=== PATIENT | male | born 1935 | race Caucasian/White ===

== ENCOUNTER → 2017-05-26 | Outpatient (CLI) | payer MEDICARE ==
--- NOTE | 2017-05-26 14:16 | CARD ---
APPROVED REPORT EXAM: Two-dimensional and M-mode echocardiogram with Doppler and color Doppler. Other Information Quality : Average Rhythm : NSR INDICATION Pericardial Effusion Hypertension/HCVD 2D DIMENSIONS Left Atrium(2D)3.5 (1.6-4.0cm)IVSd0.9 (0.7-1.1cm) Aortic Root(2D)3.2 (2.0-3.7cm)LVDd5.4 (3.9-5.9cm) LVOT Diameter2.4 (1.8-2.4cm)PWd0.9 (0.7-1.1cm) LVDs3.5 (2.5-4.0cm)FS (%) 34.2 % SV87.7 mlLVEF(%)62.7 (>50%) Aortic Valve AoV Peak Thomas.148.1cm/sAoV VTI26.3cm AO Peak GR.8.8mmHgLVOT Peak Thomas.99.1cm/s LVOT VTI 18.69cmAO Mean GR.5mmHg FERNIE (VMAX)2.77zb7ONZ (VTI)3.11cm2 Mitral Valve MV E Ognfvuvj11.4cm/sMV E Peak Gr.4mmHg MV DECEL [id number] A Kqmbrmwq78.8cm/s MV E Mean Gr.2mmHgMV ZEZ94bo E/A Ratio0.9MV A Pivxnzcx00fd MVA (PHT)3.53cm2 Tricuspid Valve TR P. Zxhhlbtg570jy/sRAP VQUKRLFI6sqMj TR Peak Gr.37bvTbDHDY41dtBc LEFT VENTRICLE The left ventricle is normal size. There is normal left ventricular wall thickness. Left ventricle sy stolic function is normal. The Ejection Fraction is 60-65%. There is normal LV segmental wall motion. Tissue Doppler imaging reveals mild left ventricular diastolic dysfunction. Transmitral Doppler flow pattern is Grade I-abnormal relaxation pattern. RIGHT VENTRICLE The right ventricle is normal size. The right ventricular systolic function is normal. ATRIA The left atrium size is normal. The right atrium size is normal. The interatrial septum is intact wit h no evidence for an atrial septal defect or patent foramen ovale as noted on 2-D or Doppler imaging. AORTIC VALVE The aortic valve is mildly calcified but opens well. The aortic valve is trileaflet. Doppler and [place] r Flow revealed no significant aortic regurgitation. There is no significant aortic valvular stenosis . MITRAL VALVE The mitral valve is normal in structure and function. There is no mitral valve stenosis. Doppler and Color Flow revealed no mitral valve regurgitation noted. TRICUSPID VALVE The tricuspid valve is normal in structure and function. Doppler and Color Flow revealed trace tricus pid regurgitation. The PA pressure was estimated at 37 mmHg. There is no tricuspid valve stenosis. PULMONIC VALVE The pulmonic valve is not well visualized. Doppler and Color Flow revealed no pulmonic valvular regur gitation. There is no pulmonic valvular stenosis. GREAT VESSELS The aortic root is normal in size. Pulmonary veins not recorded. The IVC is normal in size and collap ses >50% with inspiration. PERICARDIAL EFFUSION There is no evidence of significant pericardial effusion. Critical Notification Critical Value: No <Conclusion> Left ventricle systolic function is normal. The Ejection Fraction is 60-65%. There is normal LV segmental wall motion. Transmitral Doppler flow pattern is Grade I-abnormal relaxation pattern. Doppler and Color Flow revealed trace tricuspid regurgitation. The PA pressure was estimated at 37 mmHg. There is no evidence of significant pericardial effusion.
== END | disposition home or self-care (01) ==
LOC: ECHO 10:41
PROVIDERS: ATTEND Internal Medicine Cardiovascular Disease
DX: I10 Essential (primary) hypertension (principal)
CPT/HCPCS: 93306

== ENCOUNTER → 2018-07-28 | Outpatient (CLI) | payer MEDICARE ==
[~2018-07-28] MED LIST: IOHEXOL 300 MG/ML 75 ML VIAL. IV ONE
--- NOTE | 2018-07-28 13:44 | RAD ---
CT abdomen and pelvis without and with intravenous contrast (CT Urogram) History: Microhematuria for 6 months. Comparison: None. Technique: Initially, noncontrast CT of the abdomen and pelvis was performed. After intravenous contrast administration, 75 mL Omnipaque-300, repeat CT of the abdomen was performed in nephrographic phase. Delayed excretory phase CT of the abdomen and pelvis was also obtained. Exposure: One or more of the following individualized dose reduction techniques were utilized for this examination: 1. Automated exposure control 2. Adjustment of the mA and/or kV according to patient size 3. Use of iterative reconstruction technique Findings: Noncontrast images demonstrate no evidence of urinary stone. Postcontrast images demonstrate symmetric enhancement and excretion of intravenous contrast by both kidneys. Interpolar region of the right kidney demonstrates 1.6 cm nonenhancing cyst. Interpolar region of the left kidney demonstrates 1.9 cm nonenhancing cyst. Interpolar region of the right kidney demonstrates additional subcentimeter low-attenuation lesion incompletely characterized, also probably cyst. The right ureter is opacified in its entirety and is without evidence of filling defect. Distal 1/3 of left ureter does not fill with excreted intravenous contrast, but there is no evidence of left ureteral mass. Urinary bladder is without evidence of focal mass. The prostate is enlarged. The superior aspect of the prostate is heterogeneous in attenuation and creates an impression upon bladder base. Liver, spleen, pancreas, and right adrenal gland are unremarkable. There is mild diffuse thickening of left adrenal gland. Cholelithiasis is seen. No bowel obstruction or inflammation is identified. Appendix is without evidence of inflammation. Severe colonic diverticulosis is seen in the sigmoid colon. The colon is without evidence of diverticulitis. No free air or free fluid is seen in the abdomen or pelvis. Small fat-containing right inguinal hernia is seen. Degenerative changes are present in the spine. Impression: 1. No evidence urinary stone or soft tissue mass. No cause for hematuria is identified. 2. Bilateral renal cysts. 3. Heterogeneous, enlarged prostate. Consider correlation with PSA levels. 4. Mild thickening of the left adrenal gland. 5. Cholelithiasis. 6. Colonic diverticulosis without evidence of diverticulitis. 7. Fat-containing right inguinal hernia. Electronically signed by: Vincent Ramesh MD (07/28/2018 1:41 PM) [place] [id number]
== END | disposition home or self-care (01) ==
LOC: CT 10:21
PROVIDERS: ATTEND Internal Medicine Cardiovascular Disease
DX: K80.20 Calculus of gallbladder without cholecystitis without obstruction (principal); K57.30 Diverticulosis of large intestine without perforation or abscess without bleeding; K40.90 Unilateral inguinal hernia, without obstruction or gangrene, not specified as recurrent; N40.0 Benign prostatic hyperplasia without lower urinary tract symptoms; N28.1 Cyst of kidney, acquired
CPT/HCPCS: 74178; Q9967

== ENCOUNTER → 2018-12-29 | Outpatient (CLI) | payer MEDICARE ==
[~2018-12-29] MED LIST changes: +IOHEXOL 240 MG/ML 50ML VIAL. ONE
--- NOTE | 2018-12-29 10:40 | RAD ---
CT of the abdomen and pelvis with contrast, 12/29/2018: HISTORY: Hypoglycemia elevated labs, cancer screening Multidetector CT imaging was performed following oral and IV administration of contrast. Comparison is made to a study from 07/28/2018. There is mild linear scarring in the lung bases. There is no evidence of a hepatic mass or bile duct dilatation. Faint radiopacities within the posterior aspect of the gallbladder compatible with gallstones. The gallbladder wall is not thickened and no pericholecystic edema is seen. The pancreas is unremarkable. The spleen is of normal size. There is bilateral renal cortical scarring. There are single small cysts in both kidneys. The kidneys show no evidence of obstruction. There is mild unchanged thickening of the left adrenal gland. There is moderate calcific plaquing of the abdominal aorta and its branches without evidence of aneurysm. No abdominal or pelvic adenopathy is seen. There is mild dilatation of the right inguinal ring containing fat. No bowel herniation is evident. The prostate gland is mildly enlarged. It contains calcifications. The seminal vesicles are unremarkable. There is extensive sigmoid diverticulosis. No paracolonic inflammatory process is seen. The bowel loops are not dilated. The appendix is visualized and shows no abnormality. No free fluid is evident in the abdomen or pelvis. Moderate multilevel degenerative changes are present in the lumbar spine. IMPRESSION: 1. Cholelithiasis. 2. Extensive sigmoid diverticulosis. 3. Nonspecific prostatic enlargement. 4. Fat-containing right inguinal hernia. 5. Bilateral renal cysts 6. Stable mild thickening of the left adrenal gland. PQRS Compliance Statement: One or more of the following individualized dose reduction techniques were utilized for this examination: 1. Automated exposure control 2. Adjustment of the mA and/or kV according to patient size 3. Use of iterative reconstruction technique Electronically signed by: Lee Warner MD (12/29/2018 10:37 AM) [facility]
== END | disposition home or self-care (01) ==
LOC: CT 08:09
PROVIDERS: ATTEND Internal Medicine Cardiovascular Disease
DX: K80.20 Calculus of gallbladder without cholecystitis without obstruction (principal); K57.30 Diverticulosis of large intestine without perforation or abscess without bleeding; N40.0 Benign prostatic hyperplasia without lower urinary tract symptoms; K40.90 Unilateral inguinal hernia, without obstruction or gangrene, not specified as recurrent; N28.1 Cyst of kidney, acquired; E16.2 Hypoglycemia, unspecified; I10 Essential (primary) hypertension; Z87.891 Personal history of nicotine dependence
CPT/HCPCS: 74177; Q9967

== ENCOUNTER → 2019-01-11 | Outpatient (CLI) | payer MEDICARE ==
--- NOTE | 2019-01-11 15:34 | CARD ---
MR#: [id number] Date of Study: 01/11/2019 Ordering Physician: DEMETRIUS DOMINGUEZ, Referring Physician: DEMETRIUS DOMINGUEZ Tech: Jen Louis RDCS APPROVED REPORT EXAM: Two-dimensional and M-mode echocardiogram with Doppler and color Doppler. Other Information Quality : Good INDICATION Hypertension/HCVD 2D DIMENSIONS RVDd2.9 (2.9-3.5cm)Left Atrium(2D)3.8 (1.6-4.0cm) IVSd0.8 (0.7-1.1cm)Aortic Root(2D)2.6 (2.0-3.7cm) LVDd5.7 (3.9-5.9cm)LVOT Diameter2.1 (1.8-2.4cm) PWd0.8 (0.7-1.1cm)LVDs3.2 (2.5-4.0cm) FS (%) 30.0 %SV116.8 ml LVEF(%)60.0 (>50%) Aortic Valve AoV Peak Thomas.153.9cm/sAoV VTI27.1cm AO Peak GR.9.5mmHgLVOT Peak Thomas.103.4cm/s LVOT VTI 21.47cmAO Mean GR.5mmHg FERNIE (VMAX)2.15vy9LLL (VTI)2.79cm2 Mitral Valve MV E Ycffbmjp74.0cm/sMV DECEL MMYY144sa MV A Lduxxfln24.8cm/sE/A Ratio0.9 Tricuspid Valve TR P. Jdpkwguw191zd/sRAP VYPFYMKX4vuUf TR Peak Gr.32juIcTXAX79azSx Pulmonary Vein S1 Cmdholnb90.0cm/sD2 Ihahmzqj37.4cm/s LEFT VENTRICLE The left ventricle is normal size. There is normal left ventricular wall thickness. The left ventricu lar systolic function is normal. The Ejection Fraction is 60%. There is normal LV segmental wall rich on. Transmitral Doppler flow pattern is Grade I-abnormal relaxation pattern. RIGHT VENTRICLE The right ventricle is normal size. The right ventricular systolic function is normal. ATRIA The left atrium size is normal. The right atrium size is normal. The interatrial septum is intact wit h no evidence for an atrial septal defect or patent foramen ovale as noted on 2-D or Doppler imaging. AORTIC VALVE The aortic valve is mildly thickened but opens well. Doppler and Color Flow revealed no significant a ortic regurgitation. There is no significant aortic valvular stenosis. MITRAL VALVE The mitral valve is calcified but opens well. Mitral annular calcification is mild. There is no evide nce of mitral valve prolapse. There is no mitral valve stenosis. Doppler and Color Flow revealed no m itral valve regurgitation noted. TRICUSPID VALVE The tricuspid valve is normal in structure and function. Doppler and Color Flow revealed trace tricus pid regurgitation. There is mild pulmonary hypertension. The PA pressure was estimated at 32 mmHg. Th ere is no tricuspid valve stenosis. PULMONIC VALVE The pulmonic valve is not well visualized. Doppler and Color Flow revealed no pulmonic valvular regur gitation. There is no pulmonic valvular stenosis. GREAT VESSELS The aortic root is normal in size. The ascending aorta is normal in size. The IVC is normal in size a nd collapses >50% with inspiration. PERICARDIAL EFFUSION There is no evidence of significant pericardial effusion. Critical Notification Critical Value: No <Conclusion> The left ventricular systolic function is normal. The Ejection Fraction is 60%. There is normal LV segmental wall motion. Transmitral Doppler flow pattern is Grade I-abnormal relaxation pattern. Doppler and Color Flow revealed trace tricuspid regurgitation. The PA pressure was estimated at 32 mmHg. There is no evidence of significant pericardial effusion. Signed by : Demetrius Dominguez, Electronically Approved : 01/11/2019 15:33:56
== END | disposition home or self-care (01) ==
LOC: ECHO 12:44
PROVIDERS: ATTEND Internal Medicine Cardiovascular Disease
DX: I27.20 Pulmonary hypertension, unspecified (principal); I10 Essential (primary) hypertension
CPT/HCPCS: 93306

== ENCOUNTER → 2019-03-28 | Outpatient (CLI) | payer MEDICARE ==
[2019-03-28 15:18] LABS: BASO % 0 % (0-3); EOS # 0.1 x10^3/uL (0.0-0.7); EOS % 1 % (0-3); HEMATOCRIT 43.6 % (39.0-53.0); HEMOGLOBIN 14.8 g/dL (13.0-17.5); LYMPH % 16 % (24-48); MEAN CORPUSCULAR HEMOGLOBIN 34 pg (25-35); MEAN CORPUSCULAR HGB CONC 34 g/dL (31-37); MEAN CORPUSCULAR VOLUME 100 fL (79-100); MONO % 15 % (0-9); NEUT # 4.3 x10^3uL (1.8-7.7); NEUT % 68 % (31-73); PLATELET COUNT 153 x10^3/uL (140-400); RED BLOOD COUNT 4.34 x10^6/uL (4.30-5.70); RED CELL DISTRIBUTION WIDTH 13.2 % (11.5-14.5); WHITE BLOOD COUNT 6.4 x10^3/uL (4.0-11.0)
--- NOTE | 2019-03-28 15:18 | RAD ---
Limited ultrasound evaluation, left axilla 03/28/2019 INDICATION: Palpable abnormality COMPARISON STUDY: None Discussion: Ultrasound evaluation of the left axilla was performed in the area of palpable abnormality as indicated by the patient. The food technologist notes that the abnormality was nonpalpable during their exam. Limited ultrasound evaluation demonstrates no abnormal mass or focal fluid collection. A small normal-appearing lymph node is seen with retention of its fatty hilum and normal cortical thickness. This measures is 0.9 x 0.6 x 0.3 cm. No other focal sonographic abnormalities are appreciated. IMPRESSION: Unremarkable sonographic appearance of the left axilla. Electronically signed by: Alex Saucedo MD (03/28/2019 3:15 PM) [id number]
[2019-03-28 15:36] LABS: ALBUMIN/GLOBULIN RATIO 1.1 (1.0-1.7); CALCIUM 10.4 mg/dL (8.5-10.1); CREATININE 0.8 mg/dL (0.7-1.3); GFR 92.5; TOTAL BILIRUBIN 0.7 mg/dL (0.2-1.0); TOTAL PROTEIN 7.7 g/dL (6.4-8.2)
[2019-03-29 18:06] LABS: INSULIN LEVEL 8.2 uIU/mL (2.6-24.9)
[2019-03-30 22:07] LABS: ALBUM 4.2 g/dL (2.9-4.4); ALPHA 1 0.2 g/dL (0.0-0.4); ALPHA 2 0.7 g/dL (0.4-1.0); BETA 0.9 g/dL (0.7-1.3); GAMMA 1.2 g/dL (0.4-1.8); PROTEIN TOTAL 7.2 g/dL (6.0-8.5); SPEP AG RATIO 1.4 (0.7-1.7)
== END | disposition home or self-care (01) ==
LOC: US 14:05
PROVIDERS: ATTEND Internal Medicine Cardiovascular Disease
DX: R22.9 Localized swelling, mass and lump, unspecified (principal); I10 Essential (primary) hypertension; E78.5 Hyperlipidemia, unspecified
CPT/HCPCS: 36415; 76882; 80053; 83525; 84165; 85025

== ENCOUNTER → 2021-05-07 | Outpatient (CLI) | payer MEDICARE ==
--- NOTE | 2021-05-07 15:45 | CARD ---
MR#: [id number] Date of Study: 05/07/2021 Ordering Physician: DEMETRIUS HALEY, Referring Physician: DEMETRIUS HALEY, Tech: APPROVED REPORT EXAM: Two-dimensional and M-mode echocardiogram with Doppler and color Doppler. INDICATION Hypertension/HCVD RISK FACTORS Smoking 2D DIMENSIONS RVDd3.2 (2.9-3.5cm)Left Atrium(2D)3.7 (1.6-4.0cm) IVSd1.0 (0.7-1.1cm)Aortic Root(2D)3.3 (2.0-3.7cm) LVDd5.1 (3.9-5.9cm)LVOT Diameter2.0 (1.8-2.4cm) PWd1.0 (0.7-1.1cm)LVDs2.6 (2.5-4.0cm) FS (%) 49.0 %SV99.9 ml LVEF(%)70.1 (>50%) Aortic Valve AoV Peak Thomas.139.7cm/sAoV VTI32.3cm AO Peak GR.7.8mmHgLVOT Peak Thomas.85.8cm/s LVOT VTI 18.71cmAO Mean GR.4mmHg FERNIE (VMAX)1.06ww5ZRH (VTI)1.76cm2 Mitral Valve MV E Jntjjbxl93.5cm/sMV DECEL TMBN952on MV A Gscmkfkf36.1cm/sE/A Ratio1.1 Pulmonary Valve PV Peak Tmzzgnrg08.0cm/sPV Peak Grad.2mmHg Tricuspid Valve TR P. Outhvxhd199tt/sRAP LEEIYJHJ9ejGf TR Peak Gr.78deIwRDHF49utFx Pulmonary Vein S1 Tvromkon97.0cm/sD2 Wbogdpwk70.1cm/s LEFT VENTRICLE The left ventricle is normal size. There is borderline concentric left ventricular hypertrophy. The l eft ventricular systolic function is normal. The Ejection Fraction is 60-65%. There is normal LV segm ental wall motion. Transmitral Doppler flow pattern is Grade II-pseudonormal filling dynamics. RIGHT VENTRICLE The right ventricle is normal size. There is normal right ventricular wall thickness. The right ventr icular systolic function is normal. ATRIA The left atrium size is normal. The right atrium is borderline dilated. The interatrial septum is int act with no evidence for an atrial septal defect or patent foramen ovale as noted on 2-D or Doppler i maging. AORTIC VALVE The aortic valve is thickened but opens well. Doppler and Color Flow revealed no significant aortic r egurgitation. There is no significant aortic valvular stenosis. Calculated aortic valve area is 2.2 c m2 with maximum pressure gradient of 8 mmHg and mean pressure gradient of 4 mmHg. MITRAL VALVE The mitral valve is normal in structure and function. There is no evidence of mitral valve prolapse. There is no mitral valve stenosis. Doppler and Color Flow revealed no mitral valve regurgitation note d. TRICUSPID VALVE The tricuspid valve is normal in structure and function. Doppler and Color Flow revealed trace tricus pid regurgitation with an estimated PAP of 29 mmHg. There is no tricuspid valve stenosis. PULMONIC VALVE The pulmonic valve is not well visualized. Doppler and Color Flow revealed trace pulmonic valvular re gurgitation. GREAT VESSELS The aortic root is normal in size. The IVC is normal in size and collapses >50% with inspiration. PERICARDIAL EFFUSION There is no evidence of significant pericardial effusion. Critical Notification Critical Value: No <Conclusion> The left ventricular systolic function is normal. The Ejection Fraction is 60-65%. There is normal LV segmental wall motion. Trace tricuspid regurgitation with an estimated PAP of 29 mmHg. There is no evidence of significant pericardial effusion. Signed by : Demetrius Haley, Electronically Approved : 05/07/2021 15:44:48
== END ==
LOC: ECHO 09:37
PROVIDERS: ATTEND Internal Medicine Cardiovascular Disease
DX: I51.7 Cardiomegaly (principal); I10 Essential (primary) hypertension
CPT/HCPCS: 93306